=== PATIENT | male | born 1965 | race Caucasian/White ===

== ENCOUNTER 2019-01-20 21:43 | Inpatient (IN) | payer OTHER ==
[~2019-01-20] VITALS: Ht 165.1 cm; Wt 62.1 kg
[2019-01-20 21:54] VITALS: Ht 165.1 cm; Wt 62.1 kg
[2019-01-20 23:20] LABS: BASOPHIL % 0.4 % (0-2)
[2019-01-20 23:21] LABS: PLATELET COUNT 83 x10^3mcL (130-400); RED CELL DISTRIBUTION WIDTH 25.5 % (11.5-14.5)
[2019-01-20 23:26] LABS: CALCIUM 8.1 mg/dL (8.5-10.1)
[2019-01-20 23:37] LABS: ALBUMIN 2.7 g/dL (3.4-5.0); BILIRUBIN TOTAL 2.7 mg/dL (0.20-1.00); TOTAL PROTEIN, SERUM 6.8 g/dL (6.4-8.2)
[2019-01-20 23:45] LABS: ovalocyte/elliptocyte 1+; rbc morphology (normal/abnorm) ABNORMAL (NORMAL)
[2019-01-21] VITALS (8 sets, daily range): BP systolic 105–118; BP diastolic 56–76
[2019-01-21 00:16] LABS: microscopic required? NO
[2019-01-21 00:25] LABS: urine erythrocyte NEGATIVE (NEGATIVE)
[2019-01-21] MEDS ORDERED: COLACE100 MG PO (00:53)
[2019-01-21] MEDS ORDERED: DULCOLAX10 M1 RC (00:54)
[2019-01-21 00:55] LABS: CHOLESTEROL/HDL RATIO 2.8; MAGNESIUM 1.7 mg/dL (1.8-2.4); PHOSPHOROUS 3.6 mg/dL (2.5-4.9)
[2019-01-21] MEDS ORDERED: ELIQUIS5 MG PO (00:55)
[2019-01-21] MEDS ORDERED: DUONEB NEB (00:55)
[2019-01-21 00:56] LABS: T3 TOTAL 1.17 ng/mL
[2019-01-21] MEDS ORDERED: FLEET ENEMA135 ML RC (00:56)
[2019-01-21] MEDS ORDERED: FLORASTOR1 CAP PO (00:56)
[2019-01-21] MEDS ORDERED: Guaifenesin PO (00:57)
[2019-01-21] MEDS ORDERED: HUMULIN R100 U/1 M1 (00:58)
[2019-01-21] MEDS ORDERED: ATRUD HHN (00:59)
[2019-01-21] MEDS ORDERED: KLOR PO (00:59)
[2019-01-21] MEDS ORDERED: LASIX40 MG PO (01:00)
[2019-01-21] MEDS ORDERED: LACTULOSE10 GM/152 PO (01:00)
[2019-01-21] MEDS ORDERED: LEVEMIR100 U/M1 SQ (01:01)
[2019-01-21] MEDS ORDERED: GOOD NEIGH1200 MG/15 PO (01:02)
[2019-01-21] MEDS ORDERED: NORCO1 TA2 PO (01:03)
[2019-01-21] MEDS ORDERED: GAS RELIEF 8080 MG PO (01:03)
[2019-01-21] MEDS ORDERED: SOL40I IV (01:04)
[2019-01-21] MEDS ORDERED: ALDACTONE25 MG PO (01:04)
[2019-01-21] MEDS ORDERED: TYLENOL325 M2 PO (01:06)
[2019-01-21 01:07] LABS: FREE T4 1.07 ng/dL (0.76-1.46); FREE THYROXINE INDEX 2.1 ug/dL (1.4-4.5); T4(THYROXINE) 5.5 ug/dL (4.7-13.3)
[2019-01-21 02:12] LABS: AMPHETAMINE QUAL UR NONE DETECTED (See below)
[2019-01-21 13:07] LABS: BASOPHIL % 0.5 % (0-2)
[2019-01-21 13:14] LABS: CALCIUM 6.9 mg/dL (8.5-10.1); CARBON DIOXIDE 24.1 mmol/L (21-32); CREATININE SERUM 1.4 mg/dL (0.7-1.3)
[2019-01-21 13:16] LABS: PLATELET COUNT 62 x10^3mcL (130-400); RED CELL DISTRIBUTION WIDTH 24.3 % (11.5-14.5)
[2019-01-21 13:25] LABS: rbc morphology (normal/abnorm) ABNORMAL (NORMAL)
[2019-01-22 05:27] VITALS: BP 116/76
[2019-01-22 06:40] LABS: BASOPHIL % 0.1 % (0-2)
[2019-01-22 06:43] LABS: CALCIUM 6.6 mg/dL (8.5-10.1); CARBON DIOXIDE 18.8 mmol/L (21-32); CREATININE SERUM 1.4 mg/dL (0.7-1.3); POTASSIUM SERUM 4.5 mmol/L (3.5-5.1)
[2019-01-22 06:54] LABS: RED CELL DISTRIBUTION WIDTH 23.4 % (11.5-14.5)
[2019-01-22 07:54] LABS: PLATELET COUNT 46 x10^3mcL (130-400)
[2019-01-22 09:00] VITALS: BP 114/71
[2019-01-22 12:43] VITALS: BP 112/72
[2019-01-22 16:16] VITALS: BP 115/65
[2019-01-22 19:28] VITALS: BP 117/70
[2019-01-23 05:24] VITALS: BP 115/69
[2019-01-23 06:49] LABS: CALCIUM 6.8 mg/dL (8.5-10.1); CARBON DIOXIDE 21.6 mmol/L (21-32); CREATININE SERUM 1.4 mg/dL (0.7-1.3); MAGNESIUM 1.6 mg/dL (1.8-2.4); POTASSIUM SERUM 4.4 mmol/L (3.5-5.1)
[2019-01-23 08:46] VITALS: BP 114/72
[2019-01-23 09:13] LABS: BAND NEUTROPHIL 0 % (0-10); BASOPHIL 0 % (0-2); MONOCYTE 2 % (0-7); SEGMENTED NEUTROPHILS 96 % (37-75)
[2019-01-23 09:15] LABS: PLATELET MORPHOLOGY PLATELETS DECREASED; burr cell (echinocyte) 3+; rbc morphology (normal/abnorm) ABNORMAL (NORMAL)
[2019-01-23 13:42] LABS: RED CELL DISTRIBUTION WIDTH 25.7 % (11.5-14.5)
[2019-01-23 13:43] LABS: PLATELET COUNT 46 x10^3mcL (130-400)
[2019-01-23 13:47] VITALS: BP 117/69
[2019-01-23 16:48] VITALS: BP 111/68
[2019-01-23 19:39] VITALS: BP 119/74
[2019-01-24 04:54] VITALS: BP 97/58
[2019-01-24 06:25] LABS: BASOPHIL % 0.1 % (0-2)
[2019-01-24 06:26] LABS: PLATELET COUNT 52 x10^3mcL (130-400); RED CELL DISTRIBUTION WIDTH 26.2 % (11.5-14.5)
[2019-01-24 07:24] LABS: CALCIUM 6.8 mg/dL (8.5-10.1); CARBON DIOXIDE 21.9 mmol/L (21-32); CHLORIDE SERUM 112 mmol/L (98-107); CREATININE SERUM 1.1 mg/dL (0.7-1.3); GFR1 > 60 mL/min; GLUCOSE SERUM 192 mg/dL (74-106); MAGNESIUM 1.7 mg/dL (1.8-2.4); SODIUM SERUM 143 mmol/L (136-145)
[2019-01-24 08:15] VITALS: BP 106/73
[2019-01-24 12:00] VITALS: BP 121/80
[2019-01-24 16:45] VITALS: BP 111/71
[2019-01-24 21:15] VITALS: BP 128/83
[2019-01-25 05:58] VITALS: BP 98/59
[2019-01-25 07:01] LABS: PLATELET COUNT 57 x10^3mcL (130-400)
[2019-01-25 07:17] LABS: CALCIUM 7.3 mg/dL (8.5-10.1); CARBON DIOXIDE 25.7 mmol/L (21-32); CREATININE SERUM 1.4 mg/dL (0.7-1.3); MAGNESIUM 1.4 mg/dL (1.8-2.4); PHOSPHOROUS 2.5 mg/dL (2.5-4.9); POTASSIUM SERUM 3.6 mmol/L (3.5-5.1)
[2019-01-25 08:40] VITALS: BP 121/74
[2019-01-25 10:09] LABS: BAND NEUTROPHIL 6 % (0-10); BASOPHIL 0 % (0-2); MONOCYTE 9 % (0-7); SEGMENTED NEUTROPHILS 70 % (37-75); rbc morphology (normal/abnorm) ABNORMAL (NORMAL)
[2019-01-25 10:10] LABS: PLATELET MORPHOLOGY GIANT PLATELET SEEN; burr cell (echinocyte) 1+; ovalocyte/elliptocyte 2+; schistocyte (helmet cell) 1+; target cell (codocyte) 1+; tear drop cell (dacryocyte) 1+
[2019-01-25] MEDS ORDERED: NOVAPLUS ZOSYN50 ML IV (11:32)
[2019-01-25] MEDS ORDERED: LEVAQUIN750 MG IV (11:33)
[2019-01-25 13:15] VITALS: BP 121/74
[2019-01-25 16:30] VITALS: BP 116/74
== END 2019-01-25 23:17 | DRG 133 ==
LOC: ED 21:43 → DU 01-21 00:12
PROVIDERS: Emergency Medicine; Internal Medicine; ADMIT General Practice
DX: J96.01 Acute respiratory failure with hypoxia (principal); N17.0 Acute kidney failure with tubular necrosis; I81 Portal vein thrombosis; B44.81 Allergic bronchopulmonary aspergillosis; E11.22 Type 2 diabetes mellitus with diabetic chronic kidney disease; K74.60 Unspecified cirrhosis of liver; B18.2 Chronic viral hepatitis C; N18.9 Chronic kidney disease, unspecified; G47.30 Sleep apnea, unspecified; R74.0 Nonspecific elevation of levels of transaminase and lactic acid dehydrogenase [LDH]; E11.65 Type 2 diabetes mellitus with hyperglycemia; E83.42 Hypomagnesemia; E83.51 Hypocalcemia; J45.909 Unspecified asthma, uncomplicated; Z79.4 Long term (current) use of insulin; Z87.891 Personal history of nicotine dependence; Z87.01 Personal history of pneumonia (recurrent)
CPT/HCPCS: 82962; 83880; 84439; 94150; J0696; J1170; J1956; J2270; J2543; J2920; J3475; J7030; J7620; Q0092